=== PATIENT | male | born 1975 | race Hispanic/Latino ===

== ENCOUNTER 2019-04-16 13:39 | Emergency (ER) | payer SELFPAY ==
[2019-04-16] MEDS ORDERED: TETANUS,DIPH,PERTUSS(ACELL) VACCINE 0.5 ML SYRINGE IM ONE (17:00)
[2019-04-16] MEDS ORDERED: LIDOCAINE (1%) 10 MG/1 ML VIAL 20 ML MDV INFILTRATI ONE (17:01)
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
[2019-04-16 18:21] VITALS: BP 130/71
== END 2019-04-16 18:20 | disposition home or self-care (01) ==
LOC: ED 13:39
DX: S81.812A Laceration without foreign body, left lower leg, initial encounter (principal); F17.200 Nicotine dependence, unspecified, uncomplicated; F12.10 Cannabis abuse, uncomplicated; W45.8XXA Other foreign body or object entering through skin, initial encounter; Y93.89 Activity, other specified; Y92.89 Other specified places as the place of occurrence of the external cause; Y99.8 Other external cause status
CPT/HCPCS: 90471; 90715; 99282

== ENCOUNTER 2019-12-23 07:05 | Observation (INO) | payer OTHER ==
[2019-12-23 08:17] LABS: Basophils # (Auto) 0.1 K/mm3 (0.0-0.1); Basophils % (Auto) 0.8 % (0.0-1.8); Eosinophils % (Auto) 0.1 % (0.0-4.3); Hematocrit 44.5 % (35.5-45.6); Hemoglobin 15.4 gm/dl (11.8-15.2); Lymphocytes # (Auto) 1.2 K/mm3 (1.2-5.4); Lymphocytes % (Auto) 8.5 % (13.4-35.0); Mean Corpuscular HGB Conc 35 % (32-34); Mean Corpuscular Volume 88 fl (84-94); Monocytes # (Auto) 0.6 K/mm3 (0.0-0.8); Monocytes % (Auto) 4.4 % (0.0-7.3); Platelet Count 396 K/mm3 (140-440); Red Blood Count 5.05 M/mm3 (3.65-5.03); Red Cell Distribution Width 14.2 % (13.2-15.2)
[2019-12-23] MEDS ORDERED: ONDANSETRON 4 MG/2 ML INJ IV STA (08:37)
[2019-12-23] MEDS ORDERED: MORPHINE 4 MG/1 ML INJ IV STA (08:37)
[2019-12-23] MEDS ORDERED: SODIUM CHLORIDE 0.9% 1000 ML 1,000 ML IV ONE (08:37)
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
[2019-12-23 08:55] LABS: Alanine Aminotransferase 32 units/L (7-56); Albumin 4.7 g/dL (3.9-5); BUN/Creatinine Ratio 16; Blood Urea Nitrogen 14 mg/dL (9-20); Calcium 9.7 mg/dL (8.4-10.2); Hemolysis Index 5
[2019-12-23 11:27] LABS: Bilirubin,Urine NEG (Negative); Blood,Urine MOD (Negative); Color,Urine Yellow (Yellow); Mucus,Urine FEW /HPF; Protein,Urine <15 mg/dL mg/dL (Negative); Urobilinogen,Urine < 2.0 mg/dL (<2.0)
--- NOTE | 2019-12-23 11:38 | Ultrasound Report ---
US abdomen limited INDICATION / CLINICAL INFORMATION: ruq pain. COMPARISON: None available. FINDINGS: There is a stone seen in the gallbladder neck. Gallbladder wall is not thickened. Common bile duct is at the upper limits of normal measuring 9 mm. Diffuse fatty infiltration is seen in the liver withou t focal abnormality. The right kidney is normal. IMPRESSION: 1. Stone in the gallbladder neck 2. Common bile duct is at the upper limits of normal measuring 9 mm 3. Diffuse fatty infiltration in the liver without focal abnormality Signer Name: Cayden Jama MD FACR Signed: 12/23/2019 11:33 AM Workstation Name: [id number]
[2019-12-23] MEDS ORDERED: ACETAMINOPHEN 325 MG TAB PO PRN (14:33)
[2019-12-23] MEDS ORDERED: ONDANSETRON 4 MG/2 ML INJ IV PRN (14:33)
[2019-12-23] MEDS ORDERED: SODIUM CHLORIDE 0.9% 1000 ML 1,000 ML IV SCH (14:45)
[2019-12-23] MEDS ORDERED: PIPERACIL/TAZOBACTA 4.5/NS 100 4.5 GM/100 ML VIAL IV ONE (14:54)
[2019-12-23] MEDS ORDERED: cefTRIAXone/NS 1 GM/50 ML 1 GM/50 ML BAG IV SCH (15:00)
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
[2019-12-23] MEDS: MORPHINE 2 MG/1 ML INJ IV PRN ×2 (15:05→20:33)
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
[2019-12-23] MEDS: PIPERACIL/TAZOBACTA 4.5/NS 100 4.5 GM/100 ML VIAL IV SCH (22:00)
[2019-12-23] MEDS: HEPARIN 5,000 UNIT/1 ML VIAL SUB-Q SCH (22:01)
[2019-12-24] MEDS: MORPHINE 2 MG/1 ML INJ IV PRN (02:27)
[2019-12-24] MEDS: PIPERACIL/TAZOBACTA 4.5/NS 100 4.5 GM/100 ML VIAL IV SCH (05:03)
[2019-12-24] MEDS: HEPARIN 5,000 UNIT/1 ML VIAL SUB-Q SCH ×2 (05:43→14:40)
[2019-12-24 08:24] LABS: Basophils % (Auto) 0.4 % (0.0-1.8); Eosinophils % (Auto) 0.4 % (0.0-4.3); Lymphocytes # (Auto) 1.6 K/mm3 (1.2-5.4); Mean Corpuscular HGB Conc 36 % (32-34); Mean Corpuscular Volume 88 fl (84-94); Monocytes # (Auto) 1.1 K/mm3 (0.0-0.8); Monocytes % (Auto) 10.3 % (0.0-7.3); Platelet Count 284 K/mm3 (140-440); Red Blood Count 4.28 M/mm3 (3.65-5.03); Red Cell Distribution Width 14.4 % (13.2-15.2)
[2019-12-24 08:27] LABS: Hematocrit 37.8 % (35.5-45.6); Hemoglobin 13.6 gm/dl (11.8-15.2)
[2019-12-24 08:45] LABS: BUN/Creatinine Ratio 10; Blood Urea Nitrogen 10 mg/dL (9-20); Calcium 8.1 mg/dL (8.4-10.2); Hemolysis Index 10
[2019-12-24] MEDS ORDERED: BUPIVACAINE/PF (0.5%) 5 MG/1 ML 30 ML VIAL INFILTRATI ONE ×2 (08:45→10:02)
[2019-12-24] MEDS ORDERED: LIDOCAINE (1%) 10 MG/1 ML VIAL 20 ML MDV ONE (08:45)
[2019-12-24] MEDS ORDERED: LACTATED RINGERS 1,000 ML ONE (08:51)
[2019-12-24] MEDS ORDERED: SCOPOLAMINE TRANSDERMAL PATCH 72 HR TD ONE (08:53)
--- NOTE | 2019-12-24 08:54 | Anesthesia Consultation ---
Anesthesia Consult and Med Hx Date of service: 12/24/19 - Airway Anesthetic Teeth Evaluation: Partials ROM Head & Neck: Adequate Mental/Hyoid Distance: Adequate Mallampati Class: Class II Intubation Access Assessment: Probably Good - Pulmonary Exam CTA: Yes - Cardiac Exam Cardiac Exam: RRR - Pre-Operative Health Status ASA Pre-Surgery Classification: ASA2 Proposed Anesthetic Plan: General - Pulmonary Hx Smoking: Yes ([facility] only) Hx Respiratory Symptoms: No - Cardiovascular System Hx Hypertension: No Hx Heart Attack/AMI: No Hx Percutaneous Transluminal Coronary Angioplasty (PTCA): No Hx Cardia Arrhythmia: No - Central Nervous System CVA: No - Gastrointestinal Hx Gastroesophageal Reflux Disease: No - Endocrine Hx Renal Disease: No Hx Liver Disease: No Hx Insulin Dependent Diabetes: No Hx Non-Insulin Dependent Diabetes: No Hx Thyroid Disease: No - Hematic Hx Anemia: No - Other Systems Hx Substance Use: Yes ([facility]) Hx Obesity: Yes (BMI 36) - Additional Comments Anesthesia Medical History Comments: No hx anesthetic complications. Reports face swelling with naproxen but takes ibuprofen at home without issues.
--- NOTE | 2019-12-24 08:54 | Anesthesia Day of Surgery ---
Anesthesia Day of Surgery - Day of Surgery Patient Examined: Yes Patient H&P Reviewed: Yes Patient is NPO: Yes
[2019-12-24] MEDS ORDERED: PHENYLEPHRINE/NS 1,000 MCG/10 ML SYRINGE (OR USE) IV ONE (08:57)
[2019-12-24] MEDS ORDERED: ROCURONIUM 50 MG/5 ML INJ IV ONE (08:57)
[2019-12-24] MEDS ORDERED: GLYCOPYRROLATE 0.4 MG/2 ML INJ ONE (08:57)
[2019-12-24] MEDS ORDERED: dexAMETHasone 20 MG/5 ML VIAL ONE (08:57)
[2019-12-24] MEDS ORDERED: ONDANSETRON 4 MG/2 ML INJ ONE (08:57)
[2019-12-24] MEDS ORDERED: SUCCINYLCHOLINE CHLORIDE 200 MG/10 ML INJ MDV ONE (08:57)
[2019-12-24] MEDS ORDERED: LIDOCAINE MPF (2%) 20 MG/1 ML VIAL 5 ML ONE (08:58)
[2019-12-24] MEDS ORDERED: fentaNYL 100 MCG/2 ML INJ ONE (08:58)
[2019-12-24] MEDS ORDERED: NEOSTIGMINE 10MG/10 ML INJ MDV ONE (08:58)
[2019-12-24] MEDS ORDERED: propofoL 200 MG/20 ML VIAL IV ONE (08:58)
[2019-12-24] MEDS ORDERED: ONDANSETRON 4 MG/2 ML INJ IV PRN (09:06)
[2019-12-24] MEDS ORDERED: HYDROmorphone 1 MG/1 ML INJ IV PRN (09:06)
--- NOTE | 2019-12-24 09:24 | Discharge Summary ---
<KRYSTA AVELAR - Last Filed: 12/24/19 11:21> Providers - Providers Date of Admission: 12/23/19 14:33 Attending physician: LEWIS DOWLING Primary care physician: CYLINDER BLOCK MECHANIC Hospitalization Condition: Stable Disposition: DC-01 TO HOME OR SELFCARE Exam - Constitutional Vitals: Temp Pulse Resp BP Pulse Ox 99.7 F H 80 18 99/70 97 12/24/19 08:40 12/24/19 08:40 12/24/19 08:40 12/24/19 08:40 12/24/19 08:40 Plan Activity: other (no heavy lifting) Diet: regular, low fat Wound: open to air, per your surgeon's advice Additional Instructions: SEE PRINTED DISCHARGE INSTRUCTIONS Follow up with: PRIMARY CARE, [Primary Care Provider] - 3-5 Days KRYSTA AVELAR DO [Staff Physician] - 14 Days Prescriptions: oxyCODONE /ACETAMINOPHEN [Percocet 5/325 mg] 1 tab PO Q6H PRN #20 tablet PRN Reason: Pain, Moderate (4-6) <LEWIS DOWLING - Last Filed: 12/24/19 13:59> Providers - Providers Date of Admission: 12/23/19 14:33 Date of discharge: 12/24/19 Attending physician: LEWIS DOWLING Primary care physician: CYLINDER BLOCK MECHANIC Hospitalization Hospital course: Juan Antonio Scott is a 44-year-old white male with no known medical conditions and in his usual state of health, started having right upper quadrant abdominal pain since around 8 or 9 PM last night. Associated with nausea and vomiting x1. He also had some fever and chills and sweating this morning but states that he feels better now. He denies any nausea or vomiting or fever. In the ED gallbladder ultrasound revealed gallstone. Surgery was consulted and patient is scheduled for cholecystectomy tomorrow 12/23 patient is status post lap cholecystectomy this morning He is awake and alert but slightly groggy from anesthesia effect Offers no specific complaints Discussed with general surgery Dr. Avelar Cleared for discharge this afternoon He is medically stable Follow-up with surgery in 1 week - Discharge Diagnoses (1) Gallstone Status: Acute Qualifiers: Cholecystitis presence: with cholecystitis (2) Neutrophilic leukocytosis Status: Resolved (3) Hyperglycemia Status: Resolved Core Measure Documentation - Palliative Care Palliative Care/ Comfort Measures: Not Applicable - Core Measures Any of the following diagnoses?: none Exam - Constitutional Vitals: Temp Pulse Resp BP Pulse Ox 99.7 F H 80 18 99/70 97 12/24/19 08:25 12/24/19 08:25 12/24/19 08:25 12/24/19 08:25 12/24/19 08:25 General appearance: Present: no acute distress - EENT Eyes: Present: PERRL, EOM intact ENT: hearing intact, clear oral mucosa - Neck Neck: Present: supple, normal ROM - Respiratory Respiratory effort: normal Respiratory: bilateral: CTA - Cardiovascular Rhythm: regular Heart Sounds: Present: S1 & S2 - Extremities Extremities: No edema - Abdominal General gastrointestinal: Present: soft, non-tender - Rectal Rectal Exam: deferred - Integumentary Integumentary: Present: clear, warm - Musculoskeletal Musculoskeletal: strength equal bilaterally - Psychiatric Psychiatric: appropriate mood/affect - Neurologic Neurologic: no focal deficits Plan Activity: advance as tolerated Diet: regular, low fat
[2019-12-24] MEDS ORDERED: HYDROmorphone 1 MG/1 ML INJ ONE (09:35)
[2019-12-24] MEDS ORDERED: SCOPOLAMINE TRANSDERMAL PATCH 72 HR TD NR ×2 (10:00)
[2019-12-24] MEDS ORDERED: LACTATED RINGERS 1,000 ML IV SCH ×2 (10:00)
[2019-12-24] MEDS ORDERED: MIDAZOLAM 2 MG/2 ML INJ IV NR ×2 (10:00)
[2019-12-24] MEDS ORDERED: SODIUM CHLORIDE 0.9% 100 ML ONE (10:01)
[2019-12-24] MEDS ORDERED: WATER FOR IRRIG STERILE 1,500 ML BOTTLE IR ONE (10:02)
[2019-12-24] MEDS ORDERED: LIDOCAINE (1%) 10 MG/1 ML VIAL 20 ML MDV INFILTRATI ONE (10:02)
[2019-12-24] MEDS ORDERED: SODIUM CHLORIDE 0.9% 100 ML IVPB IV ONE (10:36)
[2019-12-24] MEDS ORDERED: SODIUM CHLORIDE 0.9% IRRIG SOLN 2000 ML IR ONE (10:36)
[2019-12-24] MEDS ORDERED: oxyCODONE /ACETAMINOPHEN 5-325MG TAB PO PRN (11:16)
--- NOTE | 2019-12-24 11:18 | Post Operative Note ---
Pre-op diagnosis: acute cholecystitis, dilated CBD Post-op diagnosis: same Findings: 1. hyrdops of gallbladder with inflammation 2. friable, fatty liver 3. normal cholangiogram Procedure: laparscopic cholecystectomy, IOC Anesthesia: GETA, local Surgeon: KRYSTA AVELAR Exercise Physiologist: SAMARA PAGAN Estimated blood loss: 50-100ml Pathology: list (gallbladder) Specimen disposition: to lab Condition: stable Disposition: PACU
--- NOTE | 2019-12-24 11:21 | Fluoroscopy Report ---
Operative cholangiogram INDICATION: Cholecystitis, laparoscopic cholecystectomy Fluoroscopy time: 47 seconds, 2 images FINDINGS: 2 C-arm images are presented. Good filling of the extrahepatic biliary tree is seen with no obvious calculi or obstruction. Flow is seen into the duodenum. Signer Name: Van Haynes MD Signed: 12/24/2019 11:17 AM Workstation Name: [id number]
--- NOTE | 2019-12-24 11:55 | Operative Report ---
Operative Report Operative Report: Date: 12/24/19 \ Pre-op diagnosis: acute cholecystitis, dilated CBD Post-op diagnosis: same Findings: 1. hyrdops of gallbladder with inflammation 2. friable, fatty liver 3. normal cholangiogram Procedure: laparscopic cholecystectomy, IOC Anesthesia: BUDDYA, local Surgeon: KRYSTA AVELAR Supply Chain Design Manager: SAMARA PAGAN Estimated blood loss: 50-100ml Pathology: list (gallbladder) Specimen disposition: to lab Condition: stable Disposition: PACU HPI and indication: Patient is a 44-year-old male who presented to the emergency room with epigastric and right upper quadrant abdominal pain. On work-up which included an ultrasound of the abdomen he was found to have a stone in the neck of the gallbladder without pericholecystic fluid or thickened gallbladder wall. His common bile duct was 9 mm. He was found to have a leukocytosis, LFTs were within normal limits. It was recommended patient undergo cholecystectomy with possible cholangiogram. All risk, benefits, alternatives to surgery were discussed with the patient questions answered. Consent obtained for laparoscopic cholecystectomy, possible open, possible cholangiogram. Procedure in detail: The patient was identified in the preoperative area and taken back to the operating room, placed on the operating room table in supine position. After anesthesia was induced, the abdomen was prepped and draped in usual sterile fashion and timeout was performed. Local anesthetic was infiltrated into all of the skin incision sites. Using an 11 blade a supraumbilical incision was made and through this a Veress needle was used to insufflate the abdomen. The position of the veress needle was confirmed with the saline drop test and the abdomen was then insufflated to 15 mmHg. The veress needle was then removed and a 5 mm trocar Optiview trocar was placed through this incision. The abdomen was then inspected and there was no underlying injury to any of the abdominal contents. An additional 12 mm subxyphoid port, and 2, 5mm RUQ ports were then placed under direct visualization. The patient was then placed into reverse Trendelberg and tilted to the left. The gallbladder was visualized and was taut and distended. Using a 30 cc syringe and laparoscopic needle, the gallbladder was decompressed of approximately 30 cc of clear, pink-tinged bile. The gallbladder was grasped and retracted cephalad. There were omental adhesions to the gallbladder which were dissected using a combination of blunt dissection and electrocautery. There was mild bleeding from this inflamed omentum. The cystic duct and artery were then carefully dissected and the critical view obtained, and the cystic duct and artery were the only two structures seen entering the gallbladder. The cystic artery was clipped with 3 clips proximal and 1 distal and it was transected in between the clips. One clip was placed on the distal aspect of the cystic duct and a duct anatomy created using EndoShears. A Angiocath was inserted into the cystic duct and clamped. Injectable saline was injected freely without any leakage. Cholangiogram was then performed and Omnipaque dye injected into the cystic duct. There was opacification of the cystic duct, common bile duct which tapers normally, and the intrahepatic bile ducts. There were no filling defects and there was contrast seen in the duodenum. The cholangiogram catheter was then removed and 3 clips were placed on the proximal aspect of the cystic duct. The duct anatomy was then completed and the duct transected. There was a small bleeding artery that was fused to the cystic duct which was grasped and clipped 2 times. This controlled the bleeding adequately. The gallbladder was then dissected off the liver bed using hook electrocautery. The gallbladder was placed into a Endo Catch bag and removed from the abdomen via the 12mm port. The gallbladder fossa was then inspected and hemostasis carefully achieved using electrocautery. The liver was friable and the dissection bed. There was no active bleeding or bile leakage identified. A piece of Surgicel was placed at the base of the liver and the gallbladder fossa. The clips were visualized and intact. The patient was then placed into neutral position and Morison's pouch was irrigated and the irrigant returned clear. The 12 mm port was removed and the fascia was closed with 2, interrupted 0 Vicryl sutures using the Navneet Khoury device. Charlette powder was sprayed onto the liver bed for further hemostasis. The remaining ports were removed under direct visualization. Skin incisions were closed with 4-0 Mo nocryl subcuticular stitches and skin glue. All skin incisions were once again infiltrated with local anesthetic. At the end case all sponge, instrument, sharp counts were correct 2. The patient was awoken from anesthesia, extubated, taken to PACU in stable condition.
--- NOTE | 2019-12-24 13:53 | Discharge Summary ---
Providers - Providers Date of Admission: 12/23/19 14:33 Date of discharge: 12/24/19 Attending physician: LEWIS DOWLING Primary care physician: LIVESTOCK YARD ATTENDANT Hospitalization Condition: Stable Disposition: DC-01 TO HOME OR SELFCARE Time spent for discharge: 36 min - Discharge Diagnoses (1) Gallstone Status: Acute Qualifiers: Cholecystitis presence: with cholecystitis (2) Neutrophilic leukocytosis Status: Acute (3) Hyperglycemia Status: Acute Exam - Constitutional Vitals: Temp Pulse Resp BP Pulse Ox 98.6 F 83 18 131/66 92 12/24/19 11:54 12/24/19 11:54 12/24/19 11:54 12/24/19 11:54 12/24/19 11:54 Plan Follow up with: KRYSTA AVELAR DO [Staff Physician] - 14 Days PRIMARY CARE, [Primary Care Provider] - 3-5 Days Prescriptions: oxyCODONE /ACETAMINOPHEN [Percocet 5/325 mg] 1 tab PO Q6H PRN #20 tablet PRN Reason: Pain, Moderate (4-6)
--- NOTE | 2019-12-24 14:11 | Event Note ---
Date: 12/24/19 Post op check: Pt seen. He appears comfortable and c/o pain near incisions. No f/c. VSS. Has tolerated clear liquid diet. No n/v Plan: Ok to dc patient this evening. Pt provided verbal and written discharge instructions. Advised patient to call surgery clinic with any questions/concerns. D/W Dr. Palafox
--- NOTE | 2019-12-24 14:16 | Post Anesthesia Evaluation ---
- Post Anesthesia Evaluation Patient Participated: Yes Airway Patent: Yes Stable Respiratory Function: Yes Nausea/Vomiting: No Temp > 96.8F: Yes Pain Manageable: Yes Adequeate Hydration: Yes Anesthesia Complications: No
[2019-12-24 17:05] VITALS: BP 110/68
== END 2019-12-24 18:20 | disposition home or self-care (01) ==
LOC: ED 07:05 → 3A 14:33 → 3B-SURG 17:47
PROVIDERS: ADMIT Internal Medicine; ATTEND Internal Medicine
DX: K80.10 Calculus of gallbladder with chronic cholecystitis without obstruction (principal); D72.829 Elevated white blood cell count, unspecified; R73.9 Hyperglycemia, unspecified; K76.0 Fatty (change of) liver, not elsewhere classified; Z79.899 Other long term (current) drug therapy
CPT/HCPCS: 36415; 47563; 74300; 76705; 80048; 80053; 81001; 83690; 85025; 88304; 96361; 96365; 96366; 96367; 96372; 96375; 96376; 99284; A4217; G0378; J0330; J0696; J1100; J1170; J1644; J2250; J2270; J2370; J2405; J2543; J2704; J2710; J3010; J7030; J7120; Q9967